=== PATIENT | female | born 1995 | race Caucasian/White ===

== ENCOUNTER 2017-09-03 22:06 | Emergency (ER) | payer BC ==
[~2017-09-03] VITALS: Ht 165.1 cm; Wt 68.0 kg
[2017-09-03 22:28] VITALS: Ht 165.1 cm; Wt 68.0 kg
[2017-09-04 00:04] VITALS: BP 106/70
== END 2017-09-04 00:04 | disposition home or self-care (01) ==
LOC: ED 22:06
DX: L03.116 Cellulitis of left lower limb (principal); J45.909 Unspecified asthma, uncomplicated; M41.9 Scoliosis, unspecified
CPT/HCPCS: Q0163